=== PATIENT | male | born 2000 | race Two or more races ===

== ENCOUNTER 2019-04-23 18:42 | Emergency (ER) | payer OTHER ==
--- NOTE | 2019-04-23 20:40 | ED ---
Laceration/Wound HPI - HPI Summary HPI Summary: 18-year-old male presents with laceration to his left thumb. States he accidentally cut himself with an [employer] knife just prior to arrival. Bleeding was controlled with direct pressure prior to arrival. Tetanus is up-to-date. Denies reduced range of motion, numbness, or tingling. - History of Current Complaint Stated Complaint: LT THUMB LAC PER PT Time Seen by Provider: 04/23/19 19:58 Hx Obtained From: Patient Pain Intensity: 7 - Allergy/Home Medications Allergies/Adverse Reactions: Allergies Allergy/AdvReac Type Severity Reaction Status Date / Time No Known Allergies Allergy Verified 04/23/19 18:47 Home Medications: Home Medications NK [No Home Medications Reported] 04/23/19 [History Confirmed 04/23/19] PMH/Surg Hx/FS Hx/Imm Hx Previously Healthy: Yes - Denies significant PMH - Surgical History Surgery Procedure, Year, and Place: None - Immunization History Date of Tetanus Vaccine: 2017 Immunizations Up to Date: Yes Infectious Disease History: No Infectious Disease History: Denies: Traveled Outside the [place] in Last 30 Days - Family History Known Family History: Positive: Non-Contributory - Social History Occupation: Student Lives: With Family Alcohol Use: Occasionally Substance Use Type: Reports: None Smoking Status (MU): Never Smoked Tobacco Review of Systems Negative: Fever, Chills Cardiovascular: Negative Respiratory: Negative Gastrointestinal: Negative Genitourinary: Negative Positive: Edema. Negative: Arthralgia, Decreased ROM Positive: Other - See HPI Neurological: Negative All Other Systems Reviewed And Are Negative: Yes Physical Exam - Summary Physical Exam Summary: GENERAL APPEARANCE: Well developed, well nourished, alert and cooperative, and appears to be in no acute distress. CARDIAC: Normal S1 and S2. No S3, S4 or murmurs. Rhythm is regular. There is no peripheral edema, cyanosis or pallor. Extremities are warm and well perfused. Capillary refill is less than 2 seconds. Peripheral pulses intact. LUNGS: Clear to auscultation without rales, rhonchi, wheezing or diminished breath sounds. ABDOMEN: Positive bowel sounds. Soft, nondistended, nontender. No guarding or rebound. No masses or hepatosplenomegally. MUSKULOSKELETAL: ROM intact to all extremities. No joint erythema or tenderness. Normal muscular development. Normal gait. EXTREMITIES: 1 cm superficial laceration at the base of the left thumb. Bleeding controlled. Patient has full ROM to the thumb to resistance. Sensation and circulation intact. SKIN: Skin normal color, texture and turgor. Triage Information Reviewed: Yes Vital Signs On Initial Exam: Initial Vitals Temp Pulse Resp BP Pulse Ox 97.1 F 81 14 138/83 98 04/23/19 18:44 04/23/19 18:44 04/23/19 18:44 04/23/19 18:44 04/23/19 18:44 Vital Signs Reviewed: Yes Procedures - Laceration/Wound Repair 1 Location: Other - left thumb Description: Linear Length, Depth and Shape: 1 cm linear superficial linear laceration Irrigated w/ Saline (ccs): 250 Laceration/Wound Explored: clean Closure: Skin Adhesive, SteriStrips - two 1/8 in steri-strips Diagnostics - Vital Signs Vital Signs Temp Pulse Resp BP Pulse Ox 04/23/19 18:44 97.1 F 81 14 138/83 98 - Laboratory Lab Statement: Any lab studies that have been ordered have been reviewed, and results considered in the medical decision making process. Laceration Repair Course/Dx - Course Course Of Treatment: 18-year-old male presents with laceration to his left thumb. States he accidentally cut himself with an X-[employer] knife just prior to arrival. Bleeding was controlled with direct pressure prior to arrival. Tetanus is up-to-date. Denies reduced range of motion, numbness, or tingling. Afebrile. Vital signs stable. Patient has a 1 cm superficial laceration at the base of the left thumb. Bleeding controlled. He has full ROM to the thumb to resistance. Sensation and circulation intact. Remainder of her exam was unremarkable. Discussed the risks and benefits of closing the wound with sutures versus a combination of Steri-Strips and skin adhesive and the patient is electing for the latter. The wound was thoroughly irrigated by RN prior to closure. The wound margins were brought into good approximation and secured with two 1/8 inch Steri-Strips and then a skin adhesive was applied. A clean gauze dressing was applied by the RN. Wound care, anticipatory guidance, and warning symptoms were reviewed with the patient. Verbalizes understanding and agrees with plan of care. - Differential Dx Differental Diagnoses: Laceration - Clinical Impression Provider Diagnoses: Laceration of left thumb without complication Discharge - Sign-Out/Discharge Documenting (check all that apply): Patient Departure Patient Received Moderate/Deep Sedation with Procedure: No - Discharge Plan Condition: Stable Disposition: HOME Patient Education Materials: Finger Laceration (ED), Skin Adhesive Care (ED), Steristrips (ED) Referrals: No Primary Care Phys,NOPCP [Primary Care Provider] - Additional Instructions: Your laceration as repaired with a combination of skin adhesive and Steri- Strips. The adhesive will slowly wear off over the next several days. Keep the adhesive dry for the next 24 hours. After 24 hours you may shower and wash your hands as ususal. Do not apply any lotions aor ointments to the adhesive as this may dissolve the adhesive and cause the wound to reopen. The Steri-Strips will slowly peel up from the ends over the next few days. You may trim the ends as needed but do not pull off or you may reopen the wound. Keep the wound covered with a dressing. Change this at least once a day or anytime the dressing becomes wet or soiled. Take acetaminophen (Tylenol) or ibuprofen (Advil, Motrin) according to directions as needed for pain. Watch for signs of infection including fever greater than 100.5 F, severe pain not managed with with pain medicine, redness that spreads, swelling of the finger, pus draining from the wound, or any worsening of symptoms. Seek immediate medical attention if any of these occur. - Billing Disposition and Condition Condition: STABLE Disposition: Home
[2019-04-23] MEDS ORDERED: Benzoin Compound STICK TOPICAL ONE (20:44)
[2019-04-23 21:34] VITALS: BP 126/74
== END 2019-04-23 21:34 | disposition home or self-care (01) ==
LOC: ED 18:42
DX: S61.012A Laceration without foreign body of left thumb without damage to nail, initial encounter (principal); W26.0XXA Contact with knife, initial encounter
CPT/HCPCS: 12001; 99282